=== PATIENT | male | born 1940 | race Caucasian/White ===

== ENCOUNTER 2017-01-01 11:19 | Inpatient (IN) | payer OTHER, MEDICARE ==
[~2017-01-01] VITALS: Ht 167.6 cm; Wt 94.5 kg
[2017-01-01] VITALS (10 sets, daily range): BP systolic 92–130; BP diastolic 60–81
--- NOTE | ~2017-01-01 | 2DMMODE ---
[facility] [address] [place] [address] 2 D/M-MODE ECHOCARDIOGRAM Name: JOHN ARNOLD Room #: 237-P [facility] IN .R.#: [id number] Admission: 01/01/17 Attend Phys: Aidan Jenkins, Discharge: Date of : 38 Date of Service: 01/01/17 1542 Report #: [id number] THIS REPORT FOR: //name// APPROVED REPORT Study performed: 01/01/2017 14:01:42 EXAM: Comprehensive 2D, Doppler, and color-flow Echocardiogram Patient Location: ER Status: stat Other Information Study Quality: Adequate Technically limited study due to body habitus. Indications Chest Pain Echo Enhancing Agent Indication: Endocardial border delineation Agent(s) / Amount(s) Used: Optison 3 cc 2D Dimensions RVDd: 43.76 mm LVEF(%): 62.37 (>50%) IVSd: 9.57 (7-11mm) LVOT Diam: 20.33 (18-24mm) LVDd: 45.44 mm PWd: 8.69 (7-11mm) Ascending Ao: 31.35 (22-36mm) LVDs: 30.21 (25-40mm) Aortic Root: 35.57 mm Romero's LVEF: 62.37 % Volumes Left Atrial Volume (Systole) Single Plane 4CH: 69.94 mL Single Plane 2CH: 81.29 mL LA ESV Index: 41.00 mL/m2 Aortic Valve AoV Peak Enoch.: 1.55 m/s AO Peak Gr.: 9.63 mmHg LVOT Max P.40 mmHg LVOT Max V: 1.05 m/s OLIVIA Vmax: 2.19 cm2 Mitral Valve E/A Ratio: 0.8 [facility] [address] [place] [address] 2 D/M-MODE ECHOCARDIOGRAM Name: CLAYTON Room #: 237-[facility] IN M.R.#: [id number] Admission: 01/01/17 Attend Phys: Aidan Jenkins, Discharge: Date of : 38 Date of Service: 01/01/17 1542 Report #: [id number] MV Decel. Time: 135.75 ms MV E Max Enoch.: 1.02 m/s MV A Enoch.: 1.30 m/s MV PHT: 39.37 ms IVRT: 51.90 ms Pulmonary Valve PV Peak Enoch.: 0.68 m/s PV Peak Gr.: 1.85 mmHg Tricuspid Valve TR Peak Enoch.: 3.22 m/s RAP Estimate: 10.00 mmHg TR Peak Gr.: 41.55 mmHg PA Pressure: 52.00 mmHg Left Ventricle The left ventricle is normal size. There is normal left ventricular wall thickness. Left ventricular systolic function is normal. LVEF is 55%. Grade I - abnormal relaxation pattern. Right Ventricle Right ventricle is not well visualized but appears dilated and hypokinetic. Atria Left atrium is moderately dilated. Right atrium is mildly dilated. Aortic Valve Aortic valve is mildly calcified. Mild aortic regurgitation. There is no aortic valvular stenosis. Mitral Valve The mitral valve is normal in structure. Mild mitral annular calcification. Moderate mitral regurgitation. Tricuspid Valve The tricuspid valve is normal in structure. There is mild to moderate tricuspid regurgitation. The right atrial pressure is estimated at 10 mmHg. There is moderate pulmonary hypertension with an estiamated PAP of 52mmHg. Pulmonic Valve Pulmonic valve is not well visualized. Great Vessels The aortic root is normal in size. The ascending aorta is normal in [facility] [address] [place] [address] 2 D/M-MODE ECHOCARDIOGRAM Name: JOHN ARNOLD Room #: 237-P [facility] IN M.R.#: [id number] Admission: 01/01/17 Attend Phys: Aidan Jenkins, Discharge: Date of : 38 Date of Service: 01/01/17 1542 Report #: [id number] size. IVC is dilated and collapses <50% with inspiration. Pericardium There is no pericardial effusion. <Conclusion> The left ventricle is normal size. LVEF is 55%. Right ventricle is not well visualized but appears dilated and hypokinetic. Left atrium is moderately dilated. Right atrium is mildly dilated. Aortic valve is mildly calcified. Mild aortic regurgitation. The mitral valve is normal in structure. Mild mitral annular calcification. Moderate mitral regurgitation. The tricuspid valve is normal in structure. There is mild to moderate tricuspid regurgitation. The right atrial pressure is estimated at 10 mmHg. There is moderate pulmonary hypertension with an estiamated PAP of 52mmHg. Pulmonic valve is not well visualized. <ELECTRONICALLY SIGNED> By: Dakota Senior MD 01/01/17 1542 [id number] Dakota Senior MD /INF
--- NOTE | ~2017-01-01 | CATHLAB ---
[facility] [address] [place] [address] INVASIVE PROCEDURE REPORT Name: JOHN ARNOLD Room #: 237-P DIS IN M.R.#: [id number] Admission: 01/01/17 Attend Phys: Aidan Jenkins, Discharge: 01/03/17 Date of : 38 Date of Service: 01/05/17 1323 Report #: [id number] THIS REPORT FOR: //name// APPROVED REPORT Patient Details Patient Status: ED Room #: 237 The patient is a 76 year-old male Event Personnel Dakota Senior Loss Mitigation Specialist, Juan Joseph RN RN, Lisa Welch Sandifer, David Monitor Procedures Performed Selective coronary angiography, supervision of conscious sedation Indication STEMI (>6 hrs to = 12 hrs) Risk Factors Arterial Hypertension, Hypercholesterolemia Procedure Narrative The patient was brought emergently to the Cardiac Catheterization Laboratory and was prepped and draped in a sterile manner. The Right Groin^ was infiltrated with 1% Lidocaine subcutaneous anesthesia. The right femoral accessed via ultrasound guidance. A PINNACLE 6FR Sheath #[id number] sheath was inserted into the RFA^. Coronary angiography was performed using coronary diagnostic catheters. The right coronary system was accessed and visualized with a JR4 catheter. The left coronary system was accessed and visualized with a JL4 catheter. There was no hematoma. Intraoperative Conscious Sedation Sedation start time: 1642 Case end Time: 1711 Versed 1.0 mg Fluoro Time: 714.00 minutes Dose: 1297 mGy Contrast Type and Amount: Omnipaque 65 ml Cheesh-Na Artery Percent Stenosis Left Main: % Prox LAD: % Mid/Distal LAD: % [facility] [address] [place] [address] INVASIVE PROCEDURE REPORT Name: JOHN ARNOLD Room #: 237-P [facility] IN ..#: [id number] Admission: 01/01/17 Attend Phys: Aidan Jenkins, Discharge: 01/03/17 Date of : 38 Date of Service: 01/05/17 1323 Report #: [id number] Circumflex: 100 % RCA: 100 % Ramus: % Diagnostic Cath Left Main Normal origin and caliber bifurcates left anterior descending left circumflex. No high-grade lesions present LAD Small-caliber type II vessel courses in the anterior interventricular sulcus giving rise to diagonal and septal branches are small. Luminal irregularities are noted but no lesions greater than 50% are present as the LAD courses towards the apex extremities a small bifurcating vessel at the apex Circumflex Small-caliber vessel with proximal tapering to 100% occlusion. The distal circumflex consisting of a terminal marginal branch and a lateral wall marginal branch filled via collaterals retrograde Right Coronary Moderate caliber dominant vessel is totally occluded in its midportion prior to the origin of the posterior descending artery. Distal branches were visualized from left injection via left to right collaterals. BALTAZAR flow was 0 this juncture. Proximal to the total occlusion there is moderate intraluminal disease present Left Ventriculography Left Ventriculography was not performed. Hemodynamics The aortic pressure is 120/70 mmHg with a mean of 95 mmHg. PCI Technique Interventional guide catheter was then engaged the right coronary ostium. Standard 014 wire was then advanced distal to the total occlusion and a balloon as stated above was then brought to his location. Multiple inflations were performed demonstrating only small hair-like vessels distally. No significant runoff was identified. Continued dilatation in the use of nicardipine were utilized to try and improve flow with some improvement in flow although to a small hair-like posterior wall circulation. PCI Technique Lesion Percutaneous coronary intervention was performed on the mistal right coronary artery. A LAUNCHER 6FR JR 4 #[id number] Guide Catheter was used to engage the RCA ostium. BALLOON DILATION A Balloon catheter Sprinter OTW 2.5 x 15 #[id number] was inserted and inflated up to 6.00atm for 13seconds. Additional Inflation: 7.00atm for 45seconds. Additional Inflation: 4.00atm for [facility] [address] [place] [address] INVASIVE PROCEDURE REPORT Name: JOHN ARNOLD Room #: 237-P [facility] IN M.R.#: [id number] Admission: 01/01/17 Attend Phys: Aidan Jenkins, Discharge: 01/03/17 Date of : 38 Date of Service: 01/05/17 1323 Report #: [id number] 65seconds. Conclusion 1. Coronary disease severe, three-vessel with total occlusion of the proximal circumflex and the mid RCA which was the culprit lesion 2. Percutaneous coronary dilatation of the right coronary ostium with reestablishment of BALTAZAR 2 flow to a small caliber diffusely diseased posterior wall circulation 3. Significant respiratory distress with pulmonary consultation obtained in the [facility] <ELECTRONICALLY SIGNED> By: Dakota Senior MD 01/05/17 1323 132 1323 Dakota Senior MD /INF
--- NOTE | ~2017-01-01 | 2DMMODE ---
[facility] [address] [place] [address] 2 D/M-MODE ECHOCARDIOGRAM Name: JOHN ARNOLD Room #: 237-P ADM IN M.R.#: [id number] Admission: 01/01/17 Attend Phys: Aidan Jenkins, Discharge: Date of : 38 Date of Service: 01/03/17 1301 Report #: [id number] THIS REPORT FOR: //name// APPROVED REPORT Study performed: 01/03/2017 11:49:16 EXAM: Comprehensive 2D, Doppler, and color-flow Echocardiogram Patient Location: ICU Room #: 237 Status: stat Other Information Study Quality: Adequate Indications Murmur VSD [place] Left Ventricle The left ventricle is normal size. There is akinesis in the basal inferior wall. There is normal left ventricular wall thickness. There is large sized ventricular septal defect present in the Mid-Inferoseptal wall with evidence of shunting by color doppler. The VSD is approximatly 2.0 cm LVEF is 55-60%. Right Ventricle Right ventricle is dilated. Right ventricle is hypokinetic. Atria Left atrium is dilated. Right atrium is dilated. Mitral Valve The mitral valve is normal in structure. Mild to moderate mitral regurgitation. Pericardium No pericardial effusion. <Conclusion> The left ventricle is normal size. There is normal left ventricular wall thickness. LVEF is 55-60%. [facility] [address] [place] [address] 2 D/M-MODE ECHOCARDIOGRAM Name: JOHN ARNOLD Room #: 237-P ADM IN M.R.#: [id number] Admission: 01/01/17 Attend Phys: Aidan Jenkins, Discharge: Date of : 38 Date of Service: 01/03/17 1301 Report #: [id number] There is akinesis in the basal inferior wall. There is large sized ventricular septal defect present in the Mid-Inferoseptal wall with evidence of shunting by color doppler. The VSD is approximatly 2.0 cm LVEF is 55-60%. Right ventricle is dilated. Right ventricle is hypokinetic. The mitral valve is normal in structure. Mild to moderate mitral regurgitation. <ELECTRONICALLY SIGNED> By: Pravin Tierney MD 01/03/17 1301 1301 00 Pravin Tierney MD /INF
--- NOTE | ~2017-01-01 | EKG ---
[address] [address] ELECTROCARDIOGRAM REPORT Name: JOHN ARNOLD Room #: 237-[facility] IN M.R.#: [id number] Admission: 01/01/17 Attend Phys: Aidan Jenkins MD Discharge: 01/03/17 Date of : 38 Report #: [id number] THIS REPORT FOR: //name// [facility] ED Test Date: 2017-01-01 Test Time: 12:06:23 Pat Name: JOHN ARNOLD Department: Room: [facility] Gender: M Rendering Equipment Tender: DEVEN : 1940 Requested By: Ru Lozada Order Number: [id number] MD: Pravin Tierney Measurements Intervals [place] Rate: 110 P: 46 NE: 130 QRS: 2 QRSD: 95 T: -19 QT: 368 QTc: 498 Interpretive Statements Sinus tachycardia Inferior infarct, age indeterminate No previous ECG available for comparison Electronically Signed On 01-04-2017 22:00:01 CDT by Pravin Tierney [email or web address] <ELECTRONICALLY SIGNED> By: Pravin Tierney MD 01/04/170 05 05 Pravin Tierney MD /GHANSHYAM
--- NOTE | ~2017-01-01 | EKG ---
[address] [address] ELECTROCARDIOGRAM REPORT Name: JOHN ARNOLD Room #: 237- DIS IN M.R.#: [id number] Admission: 01/01/17 Attend Phys: Aidan Jenkins MD Discharge: 01/03/17 Date of : 38 Report #: [id number] THIS REPORT FOR: //name// [facility] Test Date: 2017-01-03 Test Time: 11:27:24 Pat Name: JOHN ARNOLD Department: Room: 237 P Gender: M Cad Designer: MINI : 1940 Requested By: Pravin Tierney Order Number: [id number] MD: Pravin Tierney Measurements Intervals [place] Rate: 126 P: 254 MI: 92 QRS: -11 QRSD: 99 T: -2 QT: 331 QTc: 480 Interpretive Statements Ectopic atrial tachycardia, unifocal Inferior infarct, old Lateral leads are also involved No previous ECG available for comparison Electronically Signed On 01-04-2017 22:17:01 CDT by Pravin Tierney [email or web address] <ELECTRONICALLY SIGNED> By: Pravin Tierney MD 01/04/17 2217 1127 1127 Pravin Tierney MD /[facility]
--- NOTE | ~2017-01-01 | EKG ---
[address] [address] ELECTROCARDIOGRAM REPORT Name: JOHN ARNOLD Room #: 237-[facility] IN M.R.#: [id number] Admission: 01/01/17 Attend Phys: Aidan Jenkins MD Discharge: 01/03/17 Date of : 38 Report #: [id number] THIS REPORT FOR: //name// [facility] ED Test Date: 2017-01-01 Test Time: 11:22:15 Pat Name: JOHN ARNOLD Department: Room: [facility] Gender: M Technical Fellow: Ranjeet HICKS : 1940 Requested By: Ru Lozada Order Number: [id number] MD: Pravin Tierney Measurements Intervals [place] Rate: 118 P: 54 MS: 132 QRS: 17 QRSD: 94 T: -21 QT: 342 QTc: 480 Interpretive Statements Sinus tachycardia Inferior infarct, recent No previous ECG available for comparison Electronically Signed On 01-04-2017 21:59:20 CDT by Pravin Tierney [email or web address] <ELECTRONICALLY SIGNED> By: Pravin Tierney MD 01/04/17 2159 1122 1122 Pravin Tierney MD /GHAN[facility]YAM
[2017-01-01] MEDS ORDERED: FLOMAX0.4 MG PO (11:31)
[2017-01-01] MEDS ORDERED: ASPIR 8181 MG PO (11:31)
[2017-01-01 11:39] LABS: HEMATOCRIT 43.5 % (42.0-52.0); HEMOGLOBIN 14.4 gm/dL (14.0-18.0); MCH 28.7 pg (26.0-34.0); MCHC 33.1 g/dL (28.0-37.0); MCV 86.6 fL (80.0-100.0); PLATELET COUNT 286 thou/uL (150-400); RBC 5.02 mil/uL (4.50-6.00); RDW 14.1 % (10.5-14.5); WBC 23.4 thou/uL (4.0-11.0)
[2017-01-01 11:42] LABS: MANUAL DIFF YES
[2017-01-01 11:47] LABS: CALCIUM 9.5 mg/dL (8.5-10.1); CREATININE 2.2 mg/dL (0.7-1.3)
[2017-01-01 11:51] LABS: APTT 30.2 Seconds (24.5-32.8); INR 1.2; PROTIME 12.7 Seconds (9.3-11.4)
[2017-01-01 12:00] LABS: ABSOLUTE NEUTROPHILS 20.1 thou/uL (1.4-8.2); PLATELET ESTIMATE NORMAL; TOTAL CELL COUNT 100
[2017-01-01 12:03] LABS: ALBUMIN 2.7 g/dL (3.4-5.0); MAGNESIUM 2.3 mg/dL (1.8-2.4); TOTAL BILIRUBIN 1.2 mg/dL (<0.1-1.0); TOTAL PROTEIN 7.7 g/dL (6.4-8.2)
[2017-01-01 12:05] LABS: TROPONIN-I 11.11 ng/mL (<0.04-0.07)
[2017-01-01 14:37] LABS: CALCIUM 8.4 mg/dL (8.5-10.1); CREATININE 1.9 mg/dL (0.7-1.3)
[2017-01-01 15:27] LABS: ICTOTEST (BILI CONFIRMATORY) Negative (Negative); URINE BILIRUBIN 1+ (Negative); URINE BLOOD 3+ (Negative); URINE COLOR YELLOW; URINE GLUCOSE-RANDOM* NEGATIVE (Negative); URINE KETONES NEGATIVE (Negative); URINE LEUKOCYTES-REFLEX NEGATIVE (Negative); URINE PROTEIN (DIPSTICK) 1+ (Negative); URINE SPECIFIC GRAVITY >= 1.030 (1.003-1.035); URINE UROBILINOGEN 0.2 E.U./dl (0.2-1.0)
[2017-01-01 15:40] LABS: AMORPHOUS URATES Many /LPF (None Seen); CASTS None Seen /LPF (None Seen); SQUAMOUS 0-3 Few /LPF (0-3); URINE RBC 0-2 Rare /HPF (0-2); URINE WBC-REFLEX 0-5 Rare /HPF (0-5)
[2017-01-01 15:47] LABS: ABG SAMPLE TYPE ARTERIAL; BE(vivo) -11.5 mmol/L (-2 to +3); HCO3 11.5 mmol/L (22.0-26.0); LACTATE 2.85 mmol/L (0.5-2.0); O2(CT) 18.2 mL/dL (15.0-23.0); O2Hb 95.6 % (92.0-98.0); PO2 93.3 mmHg (80.0-100.0); pH 7.367 (7.360-7.450); sO2 97.1 % (92.0-98.0); tCO2 12.1 mmol/L (24.0-30.0)
[2017-01-01 15:49] LABS: ABG SAMPLE TYPE VENOUS; BE(vivo) -10.2 mmol/L (-2 to +3); HCO3 15.6 mmol/L (22.0-26.0); LACTATE 3.03 mmol/L (0.5-2.0); O2(CT) 7.5 mL/dL (15.0-23.0); PCO2 VENOUS 34.3 mmHg (41.0-51.0); PO2 VENOUS 26.7 mmHg (35.0-45.0); sO2 VENOUS 42.7 % (65.0-85.0); tCO2 16.7 mmol/L (24.0-30.0)
[2017-01-01 15:50] LABS: O2Hb VENOUS 39.7 (65.0-85.0); STICK SITE PICC
[2017-01-01 15:50] LABS: ABG COMMENT NO COMPLICATIONS.; PCO2 20.5 mmHg (35.0-45.0); STICK SITE L.RADIAL
[2017-01-01 15:58] LABS: HEMATOCRIT 39.2 % (42.0-52.0); HEMOGLOBIN 12.7 gm/dL (14.0-18.0); MANUAL DIFF YES; MCH 28.5 pg (26.0-34.0); MCHC 32.4 g/dL (28.0-37.0); PLATELET COUNT 248 thou/uL (150-400); RBC 4.46 mil/uL (4.50-6.00); RDW 14.4 % (10.5-14.5); WBC 24.7 thou/uL (4.0-11.0)
[2017-01-01 16:13] LABS: CALCIUM 8.1 mg/dL (8.5-10.1); CREATININE 2.1 mg/dL (0.7-1.3); POTASSIUM 4.2 mmol/L (3.5-5.1)
[2017-01-01 16:20] LABS: ABSOLUTE NEUTROPHILS 22.2 thou/uL (1.4-8.2); PLATELET ESTIMATE NORMAL; TOTAL CELL COUNT 100
[2017-01-01 16:21] LABS: LARGE PLATELETS FEW
[2017-01-01 16:24] LABS: APTT 73.1 Seconds (24.5-32.8)
[2017-01-01 18:09] LABS: ABG SAMPLE TYPE ARTERIAL; BE(vivo) -11.5 mmol/L (-2 to +3); HCO3 11.8 mmol/L (22.0-26.0); LACTATE 2.73 mmol/L (0.5-2.0); O2(CT) 18.3 mL/dL (15.0-23.0); O2Hb 97.9 % (92.0-98.0); PO2 190.1 mmHg (80.0-100.0); sO2 99.3 % (92.0-98.0); tCO2 12.4 mmol/L (24.0-30.0)
[2017-01-01 18:11] LABS: ABG SAMPLE TYPE VENOUS; BE(vivo) -12.2 mmol/L (-2 to +3); HCO3 13.1 mmol/L (22.0-26.0); LACTATE 2.27 mmol/L (0.5-2.0); O2(CT) 8.4 mL/dL (15.0-23.0); PCO2 VENOUS 28.6 mmHg (41.0-51.0); PO2 VENOUS 30.5 mmHg (35.0-45.0); sO2 VENOUS 51.8 % (65.0-85.0)
[2017-01-01 18:12] LABS: ABG COMMENT V60 16/6 10 50%; PCO2 21.3 mmHg (35.0-45.0); Pressure Support 10 cm H20; STICK SITE ALINE
[2017-01-01 18:12] LABS: O2Hb VENOUS 48.9 (65.0-85.0); Pressure Support 10 cm H20; STICK SITE CVP
[2017-01-01 19:18] LABS: ABG SAMPLE TYPE VENOUS; BE(vivo) -6.4 mmol/L (-2 to +3); HCO3 18.3 mmol/L (22.0-26.0); LACTATE 2.61 mmol/L (0.5-2.0); O2(CT) 9.2 mL/dL (15.0-23.0); PCO2 VENOUS 33.9 mmHg (41.0-51.0); PO2 VENOUS 28.4 mmHg (35.0-45.0); sO2 VENOUS 51.2 % (65.0-85.0); tCO2 19.3 mmol/L (24.0-30.0)
[2017-01-01 19:20] LABS: O2Hb VENOUS 48.7 (65.0-85.0); STICK SITE LINE
[2017-01-01 19:22] LABS: Pressure Support 16 cm H20
[2017-01-01 19:38] LABS: CALCIUM 8.1 mg/dL (8.5-10.1); CREATININE 1.9 mg/dL (0.7-1.3); POTASSIUM 4.4 mmol/L (3.5-5.1)
[2017-01-01 20:14] LABS: ABG SAMPLE TYPE VENOUS; HCO3 9.8 mmol/L (22.0-26.0); LACTATE 1.17 mmol/L (0.5-2.0); O2(CT) 5.8 mL/dL (15.0-23.0); O2Hb VENOUS 53.7 (65.0-85.0); PCO2 VENOUS 17.3 mmHg (41.0-51.0); PO2 VENOUS 30.7 mmHg (35.0-45.0); STICK SITE LINE; sO2 VENOUS 59.2 % (65.0-85.0); tCO2 10.3 mmol/L (24.0-30.0)
[2017-01-01 20:15] LABS: Pressure Support 16 cm H20
[2017-01-01 21:05] LABS: ABG SAMPLE TYPE VENOUS; BE(vivo) -6.9 mmol/L (-2 to +3); HCO3 17.3 mmol/L (22.0-26.0); LACTATE 2.48 mmol/L (0.5-2.0); O2(CT) 7.3 mL/dL (15.0-23.0); PCO2 VENOUS 31.2 mmHg (41.0-51.0); PO2 VENOUS 25.2 mmHg (35.0-45.0); sO2 VENOUS 44.4 % (65.0-85.0); tCO2 18.3 mmol/L (24.0-30.0)
[2017-01-01 21:07] LABS: O2Hb VENOUS 40.2 (65.0-85.0); STICK SITE LINE
[2017-01-01 23:00] LABS: ABG SAMPLE TYPE VENOUS; BE(vivo) -7.3 mmol/L (-2 to +3); HCO3 17.1 mmol/L (22.0-26.0); LACTATE 2.22 mmol/L (0.5-2.0); O2(CT) 9.1 mL/dL (15.0-23.0); PCO2 VENOUS 31.5 mmHg (41.0-51.0); PO2 VENOUS 29.4 mmHg (35.0-45.0); sO2 VENOUS 53.8 % (65.0-85.0)
[2017-01-01 23:01] LABS: O2Hb VENOUS 50.1 (65.0-85.0); STICK SITE LINE
[2017-01-01 23:02] LABS: Pressure Support 10 cm H20; TIDAL VOLUME 750 ml
[2017-01-01 23:32] LABS: CALCIUM 8.1 mg/dL (8.5-10.1); CREATININE 1.8 mg/dL (0.7-1.3); POTASSIUM 4.5 mmol/L (3.5-5.1)
[2017-01-01 23:35] LABS: TROPONIN-I 9.45 ng/mL (<0.04-0.07)
[2017-01-02] VITALS (39 sets, daily range): BP systolic 74–127; BP diastolic 57–112
[2017-01-02 03:59] LABS: ABG SAMPLE TYPE ARTERIAL; BE(vivo) -7.2 mmol/L (-2 to +3); HCO3 15.1 mmol/L (22.0-26.0); LACTATE 2.06 mmol/L (0.5-2.0); O2(CT) 17.9 mL/dL (15.0-23.0); O2Hb 97.9 % (92.0-98.0); PO2 158.7 mmHg (80.0-100.0); pH 7.437 (7.360-7.450); sO2 99.1 % (92.0-98.0); tCO2 15.8 mmol/L (24.0-30.0)
[2017-01-02 04:00] LABS: ABG COMMENT BIPAP 14/6; PCO2 22.9 mmHg (35.0-45.0); Pressure Support 8 cm H20; STICK SITE LINE; TIDAL VOLUME 750 ml
[2017-01-02 04:15] LABS: HEMATOCRIT 36.1 % (42.0-52.0); MANUAL DIFF YES; MCH 28.5 pg (26.0-34.0); MCHC 33.2 g/dL (28.0-37.0); MCV 85.8 fL (80.0-100.0); PLATELET COUNT 231 thou/uL (150-400); RBC 4.21 mil/uL (4.50-6.00); RDW 14.3 % (10.5-14.5); WBC 22.4 thou/uL (4.0-11.0)
[2017-01-02 04:29] LABS: CREATININE 1.8 mg/dL (0.7-1.3); POTASSIUM 4.6 mmol/L (3.5-5.1)
[2017-01-02 05:25] LABS: LARGE PLATELETS RARE; METAMYELOCYTES 2 %; NUCLEATED RBCS 1 /100WBC; TOTAL CELL COUNT 100
[2017-01-02 10:25] LABS: DIRECT BILIRUBIN 0.4 mg/dL (<0.1-0.3)
[2017-01-03] VITALS (35 sets, daily range): BP systolic 93–118; BP diastolic 59–93
[2017-01-03 05:18] LABS: HEMATOCRIT 35.6 % (42.0-52.0); HEMOGLOBIN 11.6 gm/dL (14.0-18.0); MCH 28.2 pg (26.0-34.0); MCHC 32.6 g/dL (28.0-37.0); MCV 86.6 fL (80.0-100.0); PLATELET COUNT 252 thou/uL (150-400); RBC 4.12 mil/uL (4.50-6.00); RDW 14.5 % (10.5-14.5)
[2017-01-03 05:30] LABS: MANUAL DIFF YES
[2017-01-03 06:05] LABS: CALCIUM 8.6 mg/dL (8.5-10.1); CREATININE 1.7 mg/dL (0.7-1.3); POTASSIUM 4.5 mmol/L (3.5-5.1); TOTAL BILIRUBIN 1.2 mg/dL (<0.1-1.0); TOTAL PROTEIN 6.1 g/dL (6.4-8.2)
[2017-01-03 10:07] LABS: ABSOLUTE NEUTROPHILS 12.3 thou/uL (1.4-8.2); ATYPICAL LYMPHS 1 %; TOTAL CELL COUNT 100
[2017-01-03 10:08] LABS: ANISOCYTOSIS SLIGHT; LARGE PLATELETS OCCASIONAL
[2017-01-03 11:14] LABS: ABG SAMPLE TYPE ARTERIAL; BE(vivo) -6.4 mmol/L (-2 to +3); HCO3 15.7 mmol/L (22.0-26.0); LACTATE 3.27 mmol/L (0.5-2.0); O2Hb 95.5 % (92.0-98.0); PCO2 23.2 mmHg (35.0-45.0); PO2 87.3 mmHg (80.0-100.0); STICK SITE R.BRACHIAL; pH 7.449 (7.360-7.450); sO2 97.2 % (92.0-98.0); tCO2 16.4 mmol/L (24.0-30.0)
[2017-01-03 11:15] LABS: ABG COMMENT BIPAP 14/6
[2017-01-03 11:56] LABS: TROPONIN-I 5.47 ng/mL (<0.04-0.07)
[2017-01-03 12:59] LABS: ABG SAMPLE TYPE ARTERIAL; BE(vivo) -5.5 mmol/L (-2 to +3); HCO3 16.5 mmol/L (22.0-26.0); O2(CT) 17.4 mL/dL (15.0-23.0); O2Hb 96.1 % (92.0-98.0); PO2 96.4 mmHg (80.0-100.0); pH 7.463 (7.360-7.450); sO2 97.8 % (92.0-98.0); tCO2 17.2 mmol/L (24.0-30.0)
[2017-01-03 13:00] LABS: ABG COMMENT BIPAP 14/6; LACTATE 4.59 mmol/L (0.5-2.0); PCO2 23.5 mmHg (35.0-45.0); STICK SITE R.BRACHIAL
== END 2017-01-03 15:06 | disposition short-term general hospital (02) | DRG 853 ==
LOC: ER 11:19 → ICU 14:05 → EROBS 14:05 → ICU 15:28
PROVIDERS: Emergency Medicine; Internal Medicine; Internal Medicine Cardiovascular Disease; Internal Medicine Pulmonary Disease; Specialist
PROC: 5A09457 Assistance with Respiratory Ventilation, 24-96 Consecutive Hours, Continuous Positive Airway Pressure (ICD-10-PCS; principal; 2017-01-01)
PROC: 02703ZZ Dilation of Coronary Artery, One Artery, Percutaneous Approach (ICD-10-PCS; 2017-01-01)
PROC: 4A133J1 Monitoring of Arterial Pulse, Peripheral, Percutaneous Approach (ICD-10-PCS; 2017-01-01)
PROC: 03HY32Z Insertion of Monitoring Device into Upper Artery, Percutaneous Approach (ICD-10-PCS; 2017-01-01)
PROC: 4A133B1 Monitoring of Arterial Pressure, Peripheral, Percutaneous Approach (ICD-10-PCS; 2017-01-01)
PROC: 02HV33Z Insertion of Infusion Device into Superior Vena Cava, Percutaneous Approach (ICD-10-PCS; 2017-01-01)
DX: A41.9 Sepsis, unspecified organism (principal); J18.9 Pneumonia, unspecified organism; I21.4 Non-ST elevation (NSTEMI) myocardial infarction; R65.21 Severe sepsis with septic shock; J96.01 Acute respiratory failure with hypoxia; N17.9 Acute kidney failure, unspecified; Q21.0 Ventricular septal defect; N40.0 Benign prostatic hyperplasia without lower urinary tract symptoms; E66.9 Obesity, unspecified; E78.5 Hyperlipidemia, unspecified; K75.9 Inflammatory liver disease, unspecified; N18.9 Chronic kidney disease, unspecified; I25.10 Atherosclerotic heart disease of native coronary artery without angina pectoris; Z87.891 Personal history of nicotine dependence; Z80.0 Family history of malignant neoplasm of digestive organs; Z68.33 Body mass index [BMI] 33.0-33.9, adult
CPT/HCPCS: 10078; 27000; 85030